=== PATIENT | female | born 1980 ===

== ENCOUNTER 2022-01-23 11:11 | Inpatient (IN) | payer OTHER ==
[~2022-01-23] VITALS: Ht 152.4 cm; Wt 70.3 kg
[2022-01-30] MEDS ORDERED: LEVSIN/SL0.125 MG SL (07:22)
[2022-01-30] MEDS ORDERED: OXYC1TAB9 PO (07:22)
[2022-01-30] MEDS ORDERED: IBU800 MG PO (07:22)
[2022-01-30] MEDS ORDERED: FAMOTIDINE20 MG PO (07:22)
== END 2022-01-31 09:57 | disposition home or self-care (01) | DRG 743 ==
LOC: O/R 01-28 05:50 → OB/GYN 01-28 10:41 → SURG-SUITE 01-28 11:31 → SURH 01-28 12:00 → SURG-SUITE 01-30 09:57
PROVIDERS: ADMIT Obstetrics & Gynecology Gynecology; ATTEND Obstetrics & Gynecology Gynecology
PROC: 0UT70ZZ Resection of Bilateral Fallopian Tubes, Open Approach (ICD-10-PCS; 2022-01-28)
PROC: 0UT90ZZ Resection of Uterus, Open Approach (ICD-10-PCS; principal; 2022-01-28 10:15)
DX: D25.1 Intramural leiomyoma of uterus (principal); D25.0 Submucous leiomyoma of uterus; D25.2 Subserosal leiomyoma of uterus; N72 Inflammatory disease of cervix uteri; N92.0 Excessive and frequent menstruation with regular cycle; D28.2 Benign neoplasm of uterine tubes and ligaments